=== PATIENT | male | born 1955 | race Caucasian/White ===

== ENCOUNTER → 2020-07-16 | Outpatient (CLI) | payer OTHER, MEDICARE ==
[2020-07-16 15:16] LABS: ABSOLUTE BASOPHILS 0.1 thou/uL (0.0-0.2); ABSOLUTE EOSINOPHILS 0.2 thou/uL (0.0-0.7); ABSOLUTE LYMPHOCYTES 1.3 thou/uL (0.8-5.3); ABSOLUTE MONOCYTES 0.6 thou/uL (0.0-1.2); ABSOLUTE NEUTROPHILS 7.6 thou/uL (1.6-8.1); BASOPHILS 0.7 %; EOSINOPHILS 1.6 %; HEMATOCRIT 40.2 % (42.0-52.0); HEMOGLOBIN 13.5 gm/dL (14.0-18.0); MCH 31.6 pg (26.0-34.0); MCHC 33.6 g/dL (28.0-37.0); MONOCYTES 6.7 %; MPV 7.1 fl. (7.2-11.1); NUCLEATED RBCS 0 /100WBC; PLATELET COUNT* 213 thou/uL (150-400); RBC 4.27 mil/uL (4.50-6.00); RDW-CV 12.5 % (10.5-14.5); WBC 9.7 thou/uL (4.0-11.0)
[2020-07-16 15:30] LABS: ALBUMIN 4.1 g/dL (3.4-5.0); CALCIUM 9.7 mg/dL (8.5-10.1); POTASSIUM 4.8 mmol/L (3.5-5.1); TOTAL BILIRUBIN 0.5 mg/dL (<0.1-1.0); TOTAL PROTEIN 8.6 g/dL (6.4-8.2)
[2020-07-17 04:06] LABS: GLYCOHEMOGLOBIN (HGB A1C) 9.2 % (4.8-5.6)
== END ==
LOC: M.LAB 14:57
PROVIDERS: ATTEND Specialist
DX: E11.9 Type 2 diabetes mellitus without complications (principal); I63.9 Cerebral infarction, unspecified; I10 Essential (primary) hypertension; E53.9 Vitamin B deficiency, unspecified; E78.5 Hyperlipidemia, unspecified

== ENCOUNTER 2020-10-31 11:25 | Inpatient (IN) | payer OTHER, MEDICARE ==
[~2020-10-31] VITALS: Ht 180.3 cm; Wt 100.2 kg
[2020-10-31 12:22] VITALS: BP 86/52
[2020-10-31] MEDS ORDERED: GLIPIZIDE 10 MG10 MG PO (12:28)
[2020-10-31] MEDS ORDERED: LIPITOR80 MG PO (12:28)
[2020-10-31] MEDS ORDERED: STEGLATRO5 MG PO (12:28)
[2020-10-31] MEDS ORDERED: ASA81BEC PO (12:28)
[2020-10-31 12:29] LABS: BE -8.1 mmol/L (-2 to +3); PCO2 30.8 mmHg (35.0-45.0); PO2 66.3 mmHg (75.0-100.0); pH 7.345 (7.340-7.450)
[2020-10-31] MEDS ORDERED: FOLIC ACID1 MG PO (12:29)
[2020-10-31] MEDS ORDERED: VITAMIN B12-FO1 EAC1 PO (12:29)
[2020-10-31] MEDS ORDERED: NORVASC10 MG PO (12:29)
[2020-10-31] MEDS ORDERED: LISINOPRIL20 MG PO (12:29)
[2020-10-31] MEDS ORDERED: DESYREL150 MG PO (12:30)
[2020-10-31] MEDS ORDERED: BRILINTA90 MG PO (12:30)
[2020-10-31] MEDS ORDERED: CARVEDILOL12.5 MG PO (12:30)
[2020-10-31 12:47] LABS: ABSOLUTE LYMPHOCYTES 0.4 thou/uL (0.8-5.3); ABSOLUTE MONOCYTES 0.3 thou/uL (0.0-1.2); ABSOLUTE NEUTROPHILS 4.7 thou/uL (1.6-8.1); BASOPHILS 0.2 %; EOSINOPHILS 0.1 %; HEMATOCRIT 33.1 % (42.0-52.0); HEMOGLOBIN 11.7 gm/dL (14.0-18.0); LYMPHOCYTES 7.5 %; MCH 32.2 pg (26.0-34.0); MCHC 35.3 g/dL (28.0-37.0); MCV 91.4 fL (80.0-100.0); MONOCYTES 4.9 %; MPV 8.6 fl. (7.2-11.1); NUCLEATED RBCS 0 /100WBC; PLATELET COUNT* 108 thou/uL (150-400); POLYS 87.3 %; RBC 3.63 mil/uL (4.50-6.00); WBC 5.4 thou/uL (4.0-11.0)
[2020-10-31 12:56] LABS: CALCIUM 7.9 mg/dL (8.5-10.1); POTASSIUM 3.9 mmol/L (3.5-5.1)
[2020-10-31 13:01] LABS: ALBUMIN 2.8 g/dL (3.4-5.0); TOTAL BILIRUBIN 0.8 mg/dL (<0.1-1.0); TOTAL PROTEIN 6.7 g/dL (6.4-8.2)
--- NOTE | 2020-10-31 13:54 | NUR ---
RIGHT BASILIC VESSEL ACCESSED FOR 5 [place] TRIPLE LUMEN PICC. LINE PRE-TRTIMMED TO 45CM AND ADVANCED TO THE ZERO BERT WITH NO RESISTANCE MET. UPPER ARM CIRCUMFERENCE ABOVE INWSERTION SITE=14 1/2". SHERLOCK MAGNET AND 3CG CONFIRMATION OF TIP TERMINATION AT THE CAVOATRIAL JUNCTION APPRECIATED. GUIDEWIRE REMOVED, LINE FLUSHED AND INSERTION SITE DRESSED. REPORT GIVEN TO DEON SILVEIRA.
--- NOTE | 2020-10-31 14:58 | NUR ---
POST PROCEDURE CHEST X-RAY PERFORMED. CATHETER OBSERVED IN THE RIGHT ATRIUM. DRESSING REMOVED STERILE FIELD ESTABLISHED AND PICC RETRACTED PER RECOMMENDATIONS. NEW STERILE DRESSING APPLIED WITH BIOPATCH. REPORT GIVEN TO DEON SILVEIRA.
--- NOTE | 2020-10-31 16:20 | EKG ---
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
[2020-10-31 17:03] LABS: URINE BILIRUBIN NEGATIVE (Negative); URINE BLOOD 3+ (Negative); URINE CLARITY CLEAR; URINE COLOR YELLOW; URINE GLUCOSE-RANDOM 2+ (Negative); URINE KETONES NEGATIVE (Negative); URINE LEUKOCYTES-REFLEX NEGATIVE (Negative); URINE NITRITE-REFLEX NEGATIVE (Negative); URINE PROTEIN 1+ (Negative); URINE UROBILINOGEN 0.2 E.U./dl (0.2-1.0)
[2020-10-31 17:10] LABS: SQUAMOUS 0-3 Few /LPF (0-3)
[2020-10-31 17:11] LABS: BACTERIA-REFLEX 1-9 Few /HPF (None Seen); CASTS None Seen /LPF (None Seen); CRYSTALS None Seen /LPF (None Seen); URINE RBC >20 Many /HPF (0-2); URINE WBC-REFLEX 0-5 Rare /HPF (0-5)
[2020-10-31 18:30] VITALS: BP 93/47
[2020-10-31 22:30] VITALS: BP 99/47
[2020-10-31 23:30] VITALS: BP 115/59
[2020-10-31 23:50] VITALS: BP 85/45
[2020-11-01] VITALS (63 sets, daily range): BP systolic 79–129; BP diastolic 42–67
[2020-11-01 06:50] LABS: HEMATOCRIT 34.9 % (42.0-52.0); HEMOGLOBIN 11.8 gm/dL (14.0-18.0); MCV 94.1 fL (80.0-100.0); MPV 8.4 fl. (7.2-11.1); RBC 3.7 mil/uL (4.50-6.00); RDW-CV 12.7 % (10.5-14.5); WBC 4.5 thou/uL (4.0-11.0)
[2020-11-01 07:01] LABS: ALBUMIN 2.4 g/dL (3.4-5.0); CALCIUM 7.6 mg/dL (8.5-10.1); CREATININE 3.3 mg/dL (0.6-1.3); MAGNESIUM 2.2 mg/dL (1.8-2.4); POTASSIUM 4.4 mmol/L (3.5-5.1); TOTAL BILIRUBIN 0.7 mg/dL (<0.1-1.0); TOTAL PROTEIN 6.3 g/dL (6.4-8.2)
[2020-11-01 12:21] LABS: CALCIUM 7.8 mg/dL (8.5-10.1); CREATININE 3.1 mg/dL (0.6-1.3); POTASSIUM 4.6 mmol/L (3.5-5.1)
[2020-11-02] VITALS (66 sets, daily range): BP systolic 73–135; BP diastolic 45–93
[2020-11-02 06:21] LABS: ALBUMIN 2.6 g/dL (3.4-5.0); CREATININE 2.4 mg/dL (0.6-1.3); MAGNESIUM 2.3 mg/dL (1.8-2.4); POTASSIUM 4.4 mmol/L (3.5-5.1); TOTAL BILIRUBIN 0.4 mg/dL (<0.1-1.0); TOTAL PROTEIN 6.6 g/dL (6.4-8.2)
[2020-11-02 07:55] LABS: HEMATOCRIT 33.6 % (42.0-52.0); HEMOGLOBIN 11.9 gm/dL (14.0-18.0); RBC 3.68 mil/uL (4.50-6.00)
[2020-11-02 07:56] LABS: MCH 32.4 pg (26.0-34.0); MCHC 35.5 g/dL (28.0-37.0); MCV 91.4 fL (80.0-100.0); MPV 7.4 fl. (7.2-11.1)
[2020-11-03] VITALS (42 sets, daily range): BP systolic 74–125; BP diastolic 36–70
[2020-11-03 05:56] LABS: HEMATOCRIT 32.4 % (42.0-52.0); HEMOGLOBIN 11.3 gm/dL (14.0-18.0); MCH 32.5 pg (26.0-34.0); MCHC 34.8 g/dL (28.0-37.0); MCV 93.3 fL (80.0-100.0); MPV 7.4 fl. (7.2-11.1); RBC 3.47 mil/uL (4.50-6.00); RDW-CV 13.1 % (10.5-14.5); WBC 7.1 thou/uL (4.0-11.0)
[2020-11-03 06:19] LABS: ALBUMIN 2.4 g/dL (3.4-5.0); CALCIUM 7.9 mg/dL (8.5-10.1); CREATININE 1.9 mg/dL (0.6-1.3); MAGNESIUM 2.4 mg/dL (1.8-2.4); POTASSIUM 4.3 mmol/L (3.5-5.1); TOTAL BILIRUBIN 0.3 mg/dL (<0.1-1.0)
--- NOTE | 2020-11-03 15:22 | NUR ---
Patient admitted with renal failure and COVID 19. CM Dir called on the phone due to COVID isolation. Introduced role of CM to . Per , patient was recently on a family vacation from 10/19-10/24 in [place]. Family rented a beach house to protect everyone against COVID, however 7 of the 14 people that went contracted the virus. Patient started developing symptoms on 10/22 and symptoms worsened which led to this curren hospitalization. currently has COVID as well. Per , patient lives in a house with his . There are stairs inside the house, however the patient does not need to use them. No hx of O2, DME, BHS, dialysis, infusion therapy, HH or SNF. Patient was independent with ADLS prior to admission. Hx of rehab at [facility] in Feb 2020 for stroke. Patient stayed x1 week. No DPOA in place. Nursing to determine if patient is agreeable with making his DPOA. CM to complete paperwork with nursing if patient agreeable. Patient currently of HFNC at 80% and 40L. Continued abx and steroids. Per Dr. Castellon patient may be able to downgrade out of ICU if stable tomorrow. Possible O2 at discharge. CM to continue to follow
[2020-11-04] VITALS (19 sets, daily range): BP systolic 85–114; BP diastolic 44–71
[2020-11-04 06:38] LABS: HEMATOCRIT 31.4 % (42.0-52.0); HEMOGLOBIN 11.1 gm/dL (14.0-18.0); MCH 32.5 pg (26.0-34.0); MCHC 35.3 g/dL (28.0-37.0); MCV 92.1 fL (80.0-100.0); MPV 7.7 fl. (7.2-11.1); RBC 3.41 mil/uL (4.50-6.00); RDW-CV 13.2 % (10.5-14.5); WBC 7.6 thou/uL (4.0-11.0)
[2020-11-04 06:51] LABS: ALBUMIN 2.4 g/dL (3.4-5.0); CALCIUM 8.1 mg/dL (8.5-10.1); CREATININE 1.7 mg/dL (0.6-1.3); MAGNESIUM 2.4 mg/dL (1.8-2.4); POTASSIUM 4.5 mmol/L (3.5-5.1); TOTAL BILIRUBIN 0.3 mg/dL (<0.1-1.0); TOTAL PROTEIN 5.8 g/dL (6.4-8.2)
--- NOTE | 2020-11-04 07:10 | NUR ---
ASSUMED PATIENT CARE AT 1900. ASSESSMENTS COMPLETED CHARTED. CARDIAC MONITORING IN PLACE. HOURLY ROUNDING IN PLACE FOR PATIENT SAFETY. FALL PRECAUTIONS IN PLACE FOR PATIENT SAFETY. BED LOCKED AND IN LOWEST POSITION.
--- NOTE | 2020-11-04 13:38 | NUR ---
ICU Rounds: DPOA paperwork completed with CM via Nursing due to COVID isolation. Patient appointed his Hyun as DPOA. Original given to patient and a copy placed on the chart. At this time, patient is on 5L HFNC. Continued steroids and patient has had 3 of 4 doses given of remdesevir. 4th dose will be given today. Possible O2 need at discharge. Patient does not have home O2. Anticipated dc in a few days. CM to continue to follow
--- NOTE | 2020-11-04 19:45 | NUR ---
Pt pleasant and cooperative; but at 1430 pt requested to talk with physician to see about sending him home. After some discussion with Dr. Manzo and RN, pt agreeable with staying until medically advised to discharge. Pt now on 4L per HFC (titrated down from 12L). VSS. Will continue to monitor.
[2020-11-05] VITALS (12 sets, daily range): BP systolic 96–125; BP diastolic 57–74
--- NOTE | 2020-11-05 03:37 | NUR ---
ASSUMED PT CARE AT APPROX. 1915. PT IS A/OX4. PT IS TRACING SB-SR ON COVER OPERATOR. PT IS ON 4L NC. PT NEEDED MINIMAL ASSIST TO TRANSFER FROM RECLINER TO BED. PT DID WELL BUT IS STILL UNSTEADY. FALL PRECAUTIONS IN PLACE FOR SAFETY. CALL LIGHT WITHIN REACH. ASSESSMENTS COMPLETE CHARTED. MEDICATIONS ADMINISTERED PRESCRIBED. WILL CONT. TO MONITOR.
[2020-11-05] MEDS ORDERED: PROTONIX40 M4 PO (07:08)
[2020-11-05] MEDS ORDERED: DOXYCYCLINE 10100 MG PO ×2 (07:08→15:04)
[2020-11-05] MEDS ORDERED: DEXAMETHASONE1 MG PO ×2 (07:08→15:03)
[2020-11-05] MEDS ORDERED: HUMALOG100 UNIT/1 SUBQ ×2 (07:10→15:07)
--- NOTE | 2020-11-05 11:52 | NUR ---
ICU Rounds: Patient medically stable for discharge on 4L O2. Patient to discharge with HH and O2. Spoke with (Hyun) over the phone to update on plan of care. No preference for HH other than she only wants a company that will accept her insurance. Referral and dc orders faxed to [facility] and they have accepted patient. Referral and orders sent to [facility] for O2. Resting ex ox completed (3LPM with activity and 1L at rest). [facility] has accepted patient and O2 with concentrator will be dispensed. Awaiting pulm to sign off on discharge. Nurse updated. CM and or nursing will call once pulm has signed off for pickup time. [facility] F: [phone] [facility] F: [phone]
[2020-11-05] MEDS ORDERED: PROTONIX40 M2 PO (15:04)
--- NOTE | 2020-11-05 15:14 | NUR ---
DISCHARGE EDUCATION PROVIDED. PT LEFT THE UNIT AT 1430.
== END 2020-11-05 14:30 | disposition home health service (06) | DRG 871 ==
LOC: M.ERS 11:25 → M.TBA-ER 15:00 → M.ICU 22:58
PROVIDERS: Emergency Medicine Emergency Medical Services; Nurse Practitioner Family; ADMIT Internal Medicine; ATTEND Internal Medicine
PROC: 5A0935A Assistance with Respiratory Ventilation, Less than 24 Consecutive Hours, High Flow/Velocity Cannula (ICD-10-PCS; principal; 2020-10-31)
PROC: XW033E5 Introduction of Remdesivir Anti-infective into Peripheral Vein, Percutaneous Approach, New Technology Group 5 (ICD-10-PCS; principal; 2020-10-31)
PROC: 02H633Z Insertion of Infusion Device into Right Atrium, Percutaneous Approach (ICD-10-PCS; principal; 2020-10-31)
PROC: XW033H5 Introduction of Tocilizumab into Peripheral Vein, Percutaneous Approach, New Technology Group 5 (ICD-10-PCS; principal; 2020-10-31)
PROC: XW13325 Transfusion of Convalescent Plasma (Nonautologous) into Peripheral Vein, Percutaneous Approach, New Technology Group 5 (ICD-10-PCS; 2020-11-01)
PROC: 5A0945A Assistance with Respiratory Ventilation, 24-96 Consecutive Hours, High Flow/Velocity Cannula (ICD-10-PCS; 2020-11-02)
PROC: 5A0935A Assistance with Respiratory Ventilation, Less than 24 Consecutive Hours, High Flow/Velocity Cannula (ICD-10-PCS; 2020-11-04)
DX: A41.9 Sepsis, unspecified organism (principal); U07.1 COVID-19; J96.01 Acute respiratory failure with hypoxia; J12.82 Pneumonia due to coronavirus disease 2019; N17.9 Acute kidney failure, unspecified; E46 Unspecified protein-calorie malnutrition; I95.9 Hypotension, unspecified; E11.22 Type 2 diabetes mellitus with diabetic chronic kidney disease; N18.9 Chronic kidney disease, unspecified; D64.9 Anemia, unspecified; I12.9 Hypertensive chronic kidney disease with stage 1 through stage 4 chronic kidney disease, or unspecified chronic kidney disease; Z68.30 Body mass index [BMI] 30.0-30.9, adult; Z86.73 Personal history of transient ischemic attack (TIA), and cerebral infarction without residual deficits

== ENCOUNTER → 2020-11-12 | Outpatient (CLI) | payer OTHER, MEDICARE ==
[~2020-11-12] MED LIST: ASA81BEC PO; BRILINTA90 MG PO; CARVEDILOL12.5 MG PO; DESYREL150 MG PO; DEXAMETHASONE1 MG PO; DOXYCYCLINE 10100 MG PO; FOLIC ACID1 MG PO; GLIPIZIDE 10 MG10 MG PO; HUMALOG100 UNIT/1 SUBQ; LIPITOR80 MG PO; LISINOPRIL20 MG PO; NORVASC10 MG PO; PROTONIX40 M2 PO; PROTONIX40 M4 PO; STEGLATRO5 MG PO; VITAMIN B12-FO1 EAC1 PO
[2020-11-12 16:47] LABS: HEMATOCRIT 36.6 % (42.0-52.0); HEMOGLOBIN 12.3 gm/dL (14.0-18.0); MCH 31.6 pg (26.0-34.0); MCHC 33.6 g/dL (28.0-37.0); MPV 8.3 fl. (7.2-11.1); NUCLEATED RBCS 0 /100WBC; PLATELET COUNT* 186 thou/uL (150-400); RBC 3.89 mil/uL (4.50-6.00); RDW-CV 13.1 % (10.5-14.5); WBC 13.1 thou/uL (4.0-11.0)
[2020-11-12 16:57] LABS: ALBUMIN 3.3 g/dL (3.4-5.0); CALCIUM 8.9 mg/dL (8.5-10.1); PHOSPHORUS* 3.7 mg/dL (2.5-4.9); POTASSIUM 5.3 mmol/L (3.5-5.1); TOTAL BILIRUBIN 0.6 mg/dL (<0.1-1.0); TOTAL PROTEIN 6.4 g/dL (6.4-8.2)
[2020-11-12 17:39] LABS: ABSOLUTE LYMPHOCYTES 0.9 thou/uL (0.8-5.3); ABSOLUTE MONOCYTES 0.5 thou/uL (0.0-1.2); ABSOLUTE NEUTROPHILS 11.7 thou/uL (1.6-8.1); PLATELET ESTIMATE ADEQUATE
== END ==
LOC: M.ULTRA 15:57
PROVIDERS: ATTEND Specialist
DX: U07.1 COVID-19 (principal); I12.9 Hypertensive chronic kidney disease with stage 1 through stage 4 chronic kidney disease, or unspecified chronic kidney disease; E11.22 Type 2 diabetes mellitus with diabetic chronic kidney disease; J12.82 Pneumonia due to coronavirus disease 2019; R60.9 Edema, unspecified; J96.01 Acute respiratory failure with hypoxia; N18.32 Chronic kidney disease, stage 3b

== ENCOUNTER → 2020-12-29 | Outpatient (CLI) | payer OTHER, MEDICARE ==
[2020-12-29 08:36] LABS: ABSOLUTE EOSINOPHILS 0.2 thou/uL (0.0-0.7); ABSOLUTE MONOCYTES 0.6 thou/uL (0.0-1.2); ABSOLUTE NEUTROPHILS 6.2 thou/uL (1.6-8.1); BASOPHILS 0.6 %; EOSINOPHILS 2.5 %; HEMATOCRIT 39.9 % (42.0-52.0); HEMOGLOBIN 13.6 gm/dL (14.0-18.0); LYMPHOCYTES 12.5 %; MCH 32.1 pg (26.0-34.0); MCHC 34.1 g/dL (28.0-37.0); MCV 94.4 fL (80.0-100.0); MONOCYTES 7.7 %; MPV 7.1 fl. (7.2-11.1); NUCLEATED RBCS 0 /100WBC; PLATELET COUNT* 224 thou/uL (150-400); POLYS 76.7 %; RBC 4.23 mil/uL (4.50-6.00); RDW-CV 14.1 % (10.5-14.5); WBC 8.1 thou/uL (4.0-11.0)
[2020-12-29 08:48] LABS: ALKALINE PHOSPHATASE 105 U/L (46-116); ANION GAP 14 mmol/L (7-16); BUN 30 mg/dL (7-18); CHLORIDE 102 mmol/L (98-107); CHOLESTEROL 113 mg/dL (<200); CO2 22 mmol/L (21-32); CREATININE 1.9 mg/dL (0.6-1.3); GLUCOSE 129 mg/dL (70-99); HDL CHOLESTEROL 31 mg/dL (>40); LDL CHOLESTEROL 50 mg/dL (<100); POTASSIUM 4.8 mmol/L (3.5-5.1); SGOT 21 U/L (15-37); SGPT 29 U/L (30-65); SODIUM 138 mmol/L (136-145); TC:HDL 3.6 Ratio (Not establshd); TOTAL BILIRUBIN 0.5 mg/dL (<0.1-1.0); TOTAL PROTEIN 7.5 g/dL (6.4-8.2); TRIGLYCERIDE 160 mg/dL (<150); VLDL 32 mg/dL (<40)
[2020-12-29 08:49] LABS: SERUM ASSESSMENT Clear
[2020-12-30 02:06] LABS: GLYCOHEMOGLOBIN (HGB A1C) 7.2 % (4.8-5.6)
== END ==
LOC: M.LAB 07:34
PROVIDERS: ATTEND Specialist
DX: Z12.11 Encounter for screening for malignant neoplasm of colon (principal); Z00.00 Encounter for general adult medical examination without abnormal findings; G47.00 Insomnia, unspecified; I10 Essential (primary) hypertension; Z80.0 Family history of malignant neoplasm of digestive organs

== ENCOUNTER → 2021-01-08 | Outpatient (CLI) | payer OTHER, MEDICARE ==
--- NOTE | 2021-01-16 08:27 | PF ---
[address] [address] PULMONARY FUNCTION REPORT Name: BERT HASTINGS Room: [facility].#: [id number] Admission: 01/08/21 Attend Phys: Drake Tee MD Discharge: Date of : 55 Report #: [id number] THIS REPORT FOR: cc: Darling Arreola. Darling Howe. Drake Jolly MD ~ DATE OF VISIT: 01/08/2021 The FEV1/FVC ratio is decreased to 68% with an FVC decreased to 73%. The FEV1 is also decreased to 67% and the FEF 25-75 is decreased to 56%. After the administration of a bronchodilator, there is no significant increase in any of these values. The patient's post-bronchodilator FEV1 is noted to be 2.47 liters. The total lung capacity is normal at 82% with residual volume normal at 96%. The DLCO, as adjusted for hemoglobin, is decreased to 66%. IMPRESSION: 1. There is a restrictive pattern on spirometry. Restriction, however, it is not noted on lung volumes. Possible etiologies could include moderate obstruction without reversibility, neuromuscular weakness or poor effort. 2. Normal lung volumes. 3. DLCO, as adjusted for hemoglobin, decreased to 66%. <ELECTRONICALLY SIGNED> By: Drake Tee MD 01/16/21 0827 2200 [id number] dexter [place]
== END ==
LOC: M.PUL 01-06 15:44
PROVIDERS: ATTEND Internal Medicine Critical Care Medicine
DX: U07.1 COVID-19 (principal); R91.8 Other nonspecific abnormal finding of lung field; J98.11 Atelectasis